=== PATIENT | male | born 2000 | race Caucasian/White ===

== ENCOUNTER 2024-05-19 22:16 | Emergency (ER) | payer MEDICAID ==
[~2024-05-19] VITALS: Ht 172.7 cm; Wt 57.0 kg
[2024-05-19 22:46] VITALS: O2SAT 99
[2024-05-19] MEDS ORDERED: LIDOCAINE HCL 1% 20ML VIAL INFIL ONE (23:45)
[2024-05-20 01:00] VITALS: BP 122/62; PULSE 62; RESP 16; TEMP 98.2
[2024-05-20] MEDS: TETANUS, DIPHTHERIA, PERTUSSIS VAC/PF 0.5ML (>10YR OLD) IM ONE (01:19)
== END 2024-05-20 01:24 | disposition home or self-care (01) ==
LOC: ER 22:16
DX: S61.012A Laceration without foreign body of left thumb without damage to nail, initial encounter (principal); X58.XXXA Exposure to other specified factors, initial encounter; Y93.89 Activity, other specified; Y92.89 Other specified places as the place of occurrence of the external cause; Y99.8 Other external cause status
CPT/HCPCS: 12001; 99283; 90715; 90471; J3490; Z7610 ×2